=== PATIENT | female | born 1995 | race Caucasian/White ===

== ENCOUNTER 2016-12-15 22:52 | Emergency (ER) | payer OTHER ==
--- NOTE | 2016-12-15 23:26 | ED CLINICAL REPORT ---
Clinical Report - Physicians/Mid Levels [facility] [address] [place] [address] 12/15/2016 22:54 Patient: TERESITA TEJEDA Time Seen: 23:04 Dec 15 2016. Arrived- By private vehicle. Historian- patient. CPT: ER phys charges level 3 plus (#[id number]). Up to 2.5 cm simple scalp, neck (#[id number]). HISTORY OF PRESENT ILLNESS Chief Complaint: Injury to the left hand. The injury happened just prior to arrival. The patient sustained a laceration from a knife. Occurred at home. Patient is experiencing moderate pain. No other injury. REVIEW OF SYSTEMS The patient sustained a laceration. No swelling, tingling, numbness, weakness or foreign body. All systems otherwise negative, except as recorded above. PAST HISTORY See nurses notes. The patient's dominant hand is the right. Tetanus immunization status is up-to-date. Medications: Allergy Medication Oral. Allergies: No Known Drug Allergy. SOCIAL HISTORY Heavy tobacco smoker (cigarette)- less than 1 pack per day. Occasional alcohol use. No drug use. ADDITIONAL NOTES The nursing notes have been reviewed. PHYSICAL EXAM Vital Signs: 12/15/2016 23:04 BP: 152/86. HR: 113. RR: 16. O2 saturation: 99%. Temp: 98.4 F. Pain level now: 5/10. Appearance: Alert. No acute distress. Skin: Skin warm and dry. Extremities: Dorsal left hand: mild tenderness and subcutaneous 2.0 cm laceration of the proximal aspect of the dorsal hand. SEE LACERATION PROCEDURE NOTE. Neurovascular intact distally. No abrasion or deformity. No limitation of extension. No wrist injury. Neuro, Vascular and Tendons: Vascular status intact. Capillary refill not prolonged. Sensation intact. Motor intact. Tendon function intact. No functional tendon deficit or tendon injury seen. Neuro: Oriented X 3. No motor deficit. No sensory deficit. PROGRESS AND PROCEDURES Laceration Repair: Location: left hand (dorsal MCP.). Length: 2.0cm. Complexity: simple (local anesthesia used and sutured). Wound depth/shape- subcutaneous and linear. Wound is clean. Distal neuro/vascular/tendon status normal. Tendon examined. No tendon deficit. Local anesthesia provided using 2% lidocaine with epi. Prepped with Hibiclens. Wound explored, cleansed, irrigated and examined to the base in bloodless field extensively with normal saline. Closure of skin: interrupted 4-0 (4 sutures). Post-procedure: she is stable and there are no complications. Bleeding is controlled and neuro-vascular status is intact distal to the wound. Dressing applied. Tetanus immunization up-to-date. Estimated blood loss: 1 mL. Patient/family counseled. Disposition: Discharged. Condition: stable and improved. CLINICAL IMPRESSION Single deep laceration to the left hand.No foreign body present. INSTRUCTIONS Protect wound and keep wound area clean. Change dressing twice daily. Keep wounds dry. You may wash wounds briefly, then dry. Apply neosporin twice daily. Sutures/jh should be removed in eight days. Limit use of your left hand until better. Return to work tomorrow, in one day (avoid heavy gripping . Do not get wet.). Your Current Medications: CONTINUE TAKING THE FOLLOWING MEDICATIONS: Allergy Medication Oral. OTC Medications: Acetaminophen (available over the counter): take according to label instructions. Follow-up: Follow up with your doctor in eight days as scheduled for suture removal. Understanding of the discharge instructions verbalized by patient. Discharge instructions reviewed with and understanding was verbalized by spouse and neighbor. (Electronically signed by Familia Kolb MD 12/17/2016 12:14)
--- NOTE | 2016-12-15 23:26 | ED NURSING NOTES ---
Clinical Report - Nurses [facility] [address] [place] [place] [address] 12/15/2016 22:54 [id number] TRI[facility] Triage time 23:00 Dec 15 2016. Acuity: LEVEL 3. Chief Complaint: INJURY TO LEFT HAND. Alert. SAMUEL COMA SCORE: [place] Coma Scale: 15- eyes open spontaneously (4); best verbal response- oriented x 4 (5); best motor response- obeys commands (6). Samuel Coma Scale: 15- eyes open spontaneously (4); best verbal response- oriented x 4 (5); best motor response- obeys commands (6). --23:20 Osei Gray R.N. 23:04 12/15/16. BP: 152/86. HR: 113. RR: 16. O2 saturation: 99%. Temp: 98.4 F (oral). Pain level now: 11/06. --23:20 Osei Gray R.N. Weight: 90.7 kg stated. Height/Length: 63 inches Per Patient. BMI: 35.4. --23:12 Osei Gray R.N. Medications Allergy Medication Oral. --23:08 Osei Gray R.N. Medication/allergy information source: the patient. --23:20 Osei Gray R.N. Allergies No Known Drug Allergy. --23:08 Osei Gray R.N. History Arrived by private vehicle. Historian: patient. Accompanied by family. Primary physician (none). ( (L) Hand Laceration. Cut her hand on a knife while doing dishes.). This occurred (about 20 minutes ago). Occurred at home. She sustained a laceration. Mechanism of injury: (knife cut). Treatment SUPERVISORY GEOGRAPHER: None. PAST MEDICAL HX: Tetanus status: unknown. Immunizations: status is unknown. SOCIAL HX: Heavy tobacco smoker- less than 1 pack per day. Alcohol use; consumes three glasses of wine. No drug use. No infectious disease exposure. ABUSE ASSESSMENT: No report of abuse. FALL RISK ASSESSMENT: Fall risk assessment completed. No fall risk identified. NUTRITIONAL RISK ASSESSMENT: The nutritional risk assessment revealed no deficiencies. FUNCTIONAL ASSESSMENT: Functional assessment: no impairments noted. LEARNING NEEDS ASSESSMENT: The learning needs assessment revealed no barriers. SKIN INTEGRITY ASSESSMENT: Skin integrity risk assessment completed. No skin integrity risk identified. --23:20 Osei Gray R.N. ADDITIONAL SURGERIES: . --23:19 Osei Gray R.N. Interventions ID band on patient. To treatment room. --23:20 Osei Gray R.N. PHYSICAL ASSESSMENT Ambulatory to room. GENERAL / NEURO / PSYCH: Oriented X 4. Appears in pain. EXTREMITIES: Capillary refill is less than 2 seconds in the extremities. Extremity pulses are within normal limits. Neuro-vascular status intact to the extremity. Left hand: laceration. SKIN: Skin intact. Skin is warm and dry. Laceration; (Left 5th finger). --23:14 Osei Gray R.N. NURSING PROGRESS NOTES Reassurance given. Patient identifiers checked. Call light placed in reach. Side rails up. Patient ready for evaluation- chart flagged and ED physician notified. --23:15 Osei Gray R.N. 23:22 17. Bleeding controlled. Wound cleansed. WOUND REPAIR: Wound repair performed by ED physician. Assisted by one nurse. The wound is located on the left little finger. The wound is 2 cm. The wound is linear. Preparation: suture tray set-up with 2% lidocaine with epi. Wound cleansed per physician. Procedure: wound repaired with sutures. Post-procedure: dressing applied. Estimated blood loss: 1 mL. Total time of assist / procedure: 15 minutes. --23:22 Osei Gray R.N. Applied sterile bulky dressing, following the application of antibiotic ointment (bacitracin). Secured with kerlix. --05:09 Osei Gray R.N. DISPOSITION / DISCHARGE 23:30. Condition at departure: improved. No learning barriers present. Discharge instructions provided and reviewed with the patient. Reviewed wound care instructions (sutures out in 7-10 days). Reviewed referral to family practice for followup. Patient verbalized understanding. Written instructions provided in Beninese. The patient was discharged by the physician. She was discharged home and accompanied by family and logistics administrator. She left the Emergency Department ambulatory and via private vehicle. Citrus Fruit Colorer driving. --05:08 Osei Gray R.N. Departure time: 2330. --05:08 Osei Gray R.N. Locked/Released at 12/16/2016 5:09 by Osei Gray R.N.
--- NOTE | 2016-12-15 23:26 | ED CLINICAL REPORT ---
Clinical Report - Physicians/Mid Levels [facility] [address] [place] [address] 12/15/2016 22:54 Patient: TERESITA TEJEDA Time Seen: 23:04 Dec 15 2016. Arrived- By private vehicle. Historian- patient. CPT: ER phys charges level 3 plus (#[id number]). Up to 2.5 cm simple scalp, neck (#[id number]). HISTORY OF PRESENT ILLNESS Chief Complaint: Injury to the left hand. The injury happened just prior to arrival. The patient sustained a laceration from a knife. Occurred at home. Patient is experiencing moderate pain. No other injury. REVIEW OF SYSTEMS The patient sustained a laceration. No swelling, tingling, numbness, weakness or foreign body. All systems otherwise negative, except as recorded above. PAST HISTORY See nurses notes. The patient's dominant hand is the right. Tetanus immunization status is up-to-date. Medications: Allergy Medication Oral. Allergies: No Known Drug Allergy. SOCIAL HISTORY Heavy tobacco smoker (cigarette)- less than 1 pack per day. Occasional alcohol use. No drug use. ADDITIONAL NOTES The nursing notes have been reviewed. PHYSICAL EXAM Vital Signs: 12/15/2016 23:04 BP: 152/86. HR: 113. RR: 16. O2 saturation: 99%. Temp: 98.4 F. Pain level now: 5/10. Appearance: Alert. No acute distress. Skin: Skin warm and dry. Extremities: Dorsal left hand: mild tenderness and subcutaneous 2.0 cm laceration of the proximal aspect of the dorsal hand. SEE LACERATION PROCEDURE NOTE. Neurovascular intact distally. No abrasion or deformity. No limitation of extension. No wrist injury. Neuro, Vascular and Tendons: Vascular status intact. Capillary refill not prolonged. Sensation intact. Motor intact. Tendon function intact. No functional tendon deficit or tendon injury seen. Neuro: Oriented X 3. No motor deficit. No sensory deficit. PROGRESS AND PROCEDURES Laceration Repair: Location: left hand (dorsal MCP.). Length: 2.0cm. Complexity: simple (local anesthesia used and sutured). Wound depth/shape- subcutaneous and linear. Wound is clean. Distal neuro/vascular/tendon status normal. Tendon examined. No tendon deficit. Local anesthesia provided using 2% lidocaine with epi. Prepped with Hibiclens. Wound explored, cleansed, irrigated and examined to the base in bloodless field extensively with normal saline. Closure of skin: interrupted 4-0 (4 sutures). Post-procedure: she is stable and there are no complications. Bleeding is controlled and neuro-vascular status is intact distal to the wound. Dressing applied. Tetanus immunization up-to-date. Estimated blood loss: 1 mL. Patient/family counseled. Disposition: Discharged. Condition: stable and improved. CLINICAL IMPRESSION Single deep laceration to the left hand.No foreign body present. INSTRUCTIONS Protect wound and keep wound area clean. Change dressing twice daily. Keep wounds dry. You may wash wounds briefly, then dry. Apply neosporin twice daily. Sutures/jh should be removed in eight days. Limit use of your left hand until better. Return to work tomorrow, in one day (avoid heavy gripping . Do not get wet.). Your Current Medications: CONTINUE TAKING THE FOLLOWING MEDICATIONS: Allergy Medication Oral. OTC Medications: Acetaminophen (available over the counter): take according to label instructions. Follow-up: Follow up with your doctor in eight days as scheduled for suture removal. Understanding of the discharge instructions verbalized by patient. Discharge instructions reviewed with and understanding was verbalized by spouse and neighbor. (Electronically signed by Familia Kolb MD 12/17/2016 12:14)
--- NOTE | 2016-12-15 23:26 | ED NURSING NOTES ---
Clinical Report - Nurses [facility] [address] [place] [address] 12/15/2016 22:54 [id number] Triage time 23:00 Dec 15 2016. Acuity: LEVEL 3. Chief Complaint: INJURY TO LEFT HAND. Alert. SAMUEL COMA SCORE: [place] Coma Scale: 15- eyes open spontaneously (4); best verbal response- oriented x 4 (5); best motor response- obeys commands (6). Samuel Coma Scale: 15- eyes open spontaneously (4); best verbal response- oriented x 4 (5); best motor response- obeys commands (6). --23:20 Osei Gray R.N. 23:04 12/15/16. BP: 152/86. HR: 113. RR: 16. O2 saturation: 99%. Temp: 98.4 F (oral). Pain level now: 11/06. --23:20 Osei Gray R.N. Weight: 90.7 kg stated. Height/Length: 63 inches Per Patient. BMI: 35.4. --23:12 Osei Gray R.N. Medications Allergy Medication Oral. --23:08 Osei Gray R.N. Medication/allergy information source: the patient. --23:20 Osei Gray R.N. Allergies No Known Drug Allergy. --23:08 Osei Gray R.N. History Arrived by private vehicle. Historian: patient. Accompanied by family. Primary physician (none). ( (L) Hand Laceration. Cut her hand on a knife while doing dishes.). This occurred (about 20 minutes ago). Occurred at home. She sustained a laceration. Mechanism of injury: (knife cut). Treatment ADVERTISING SALES EXECUTIVE: None. PAST MEDICAL HX: Tetanus status: unknown. Immunizations: status is unknown. SOCIAL HX: Heavy tobacco smoker- less than 1 pack per day. Alcohol use; consumes three glasses of wine. No drug use. No infectious disease exposure. ABUSE ASSESSMENT: No report of abuse. FALL RISK ASSESSMENT: Fall risk assessment completed. No fall risk identified. NUTRITIONAL RISK ASSESSMENT: The nutritional risk assessment revealed no deficiencies. FUNCTIONAL ASSESSMENT: Functional assessment: no impairments noted. LEARNING NEEDS ASSESSMENT: The learning needs assessment revealed no barriers. SKIN INTEGRITY ASSESSMENT: Skin integrity risk assessment completed. No skin integrity risk identified. --23:20 Osei Gray R.N. ADDITIONAL SURGERIES: . --23:19 Osei Gray R.N. Interventions ID band on patient. To treatment room. --23:20 Osei Gray R.N. PHYSICAL ASSESSMENT Ambulatory to room. GENERAL / NEURO / PSYCH: Oriented X 4. Appears in pain. EXTREMITIES: Capillary refill is less than 2 seconds in the extremities. Extremity pulses are within normal limits. Neuro-vascular status intact to the extremity. Left hand: laceration. SKIN: Skin intact. Skin is warm and dry. Laceration; (Left 5th finger). --23:14 Osei Gray R.N. NURSING PROGRESS NOTES Reassurance given. Patient identifiers checked. Call light placed in reach. Side rails up. Patient ready for evaluation- chart flagged and ED physician notified. --23:15 Osei Gray R.N. 23:22 17. Bleeding controlled. Wound cleansed. WOUND REPAIR: Wound repair performed by ED physician. Assisted by one nurse. The wound is located on the left little finger. The wound is 2 cm. The wound is linear. Preparation: suture tray set-up with 2% lidocaine with epi. Wound cleansed per physician. Procedure: wound repaired with sutures. Post-procedure: dressing applied. Estimated blood loss: 1 mL. Total time of assist / procedure: 15 minutes. --23:22 Osei Gray R.N. Applied sterile bulky dressing, following the application of antibiotic ointment (bacitracin). Secured with kerlix. --05:09 Osei Gray R.N. DISPOSITION / DISCHARGE 23:30. Condition at departure: improved. No learning barriers present. Discharge instructions provided and reviewed with the patient. Reviewed wound care instructions (sutures out in 7-10 days). Reviewed referral to family practice for followup. Patient verbalized understanding. Written instructions provided in S[place]inese. The patient was discharged by the physician. She was discharged home and accompanied by family and landfill gas technician. She left the Emergency Department ambulatory and via private vehicle. Carbon Accountant driving. --05:08 Osei Gray R.N. Departure time: 2330. --05:08 Osei Gray R.N. Locked/Released at 12/16/2016 5:09 by Osei Gray R.N.
--- NOTE | 2016-12-17 12:14 | ED MED RECONCILIATION SUMMARY ---
Patient: BEBETO TEJEDAILEY Munir Medication Reconciliation Report [facility] VisitID: [id number] [place] [address] 21y, F Registration Date/Time: 12/15/2016 Weight: 90.7 kg Height/Length: 63 in. BMI: 35.4 ALLERGIES: No Known Drug Allergy The patient's Home Medications are listed below: CONTINUE TAKING THE FOLLOWING MEDICATIONS: Allergy Medication Oral The source(s) of the original Home Medication information: patient The following Medications were given to the patient in the Emergency Department: None. The following Medications were prescribed to the patient: Acetaminophen (available over the counter): take according to label instructions. -- Familia Kolb MD
--- NOTE | 2016-12-17 12:14 | ED MAR SUMMARY ---
..... Medication Administration Record [address] [place], [place] [id number] Patient: TERESITA TEJEDA Visit ID: [id number] 21y, F Weight: 90.7 kg Height/Length: 63 in BMI: 35.4 ALLERGIES: No Known Drug Allergy
--- NOTE | 2016-12-17 12:14 | ED MAR SUMMARY ---
..... Medication Administration Record [facility] [address] [place], [place] [id number] Patient: TERESITA TEJEDA Visit ID: [id number] 21y, F Weight: 90.7 kg Height/Length: 63 in BMI: 35.4 ALLERGIES: No Known Drug Allergy
--- NOTE | 2016-12-17 12:14 | ED DISCHARGE INSTRUCTIONS ---
Patient: TERESITA TEJEDA General Instructions [facility] VisitID: [id number] [place] [address] 21y, F Registration Date/Time: 12/15/2016 Single deep laceration to the left hand.No foreign body present. INSTRUCTIONS Protect wound and keep wound area clean. Change dressing twice daily. Keep wounds dry. You may wash wounds briefly, then dry. Apply neosporin twice daily. Sutures/francia should be removed in eight days. Limit use of your left hand until better. Return to work tomorrow, in one day (avoid heavy gripping . Do not get wet.). Your Current Medications: CONTINUE TAKING THE FOLLOWING MEDICATIONS: Allergy Medication Oral. OTC Medications: Acetaminophen (available over the counter): take according to label instructions. Follow-up: Follow up with your doctor in eight days as scheduled for suture removal. Understanding of the discharge instructions verbalized by patient. Discharge instructions reviewed with and understanding was verbalized by spouse and neighbor. ADDITIONAL INFORMATION Laceration, Extremity (Sutures, [place], Or Tape) A laceration is a cut through the skin. This will usually require stitches (sutures) or francia if it is deep. Minor cuts may be treated with surgical tape closures. Home care The following guidelines will help you care for your laceration at home: Keep the wound clean and dry. If a bandage was applied and it becomes wet or dirty, replace it. Otherwise, leave it in place for the first 24 hours, then change it once a day or as directed. If stitches or francia were used, clean the wound daily: After removing the bandage, wash the area with soap and water. Use a wet cotton swab to loosen and remove any blood or crust that forms. After cleaning, keep the wound clean and dry. Talk with your doctor before applying any antibiotic ointment to the wound. Reapply the bandage. You may remove the bandage to shower as usual after the first 24 hours, but do not soak the area in water (no swimming) until the stitches or frnacia are removed. If surgical tape closures were used, keep the area clean and dry. If it becomes wet, blot it dry with a towel. The doctor may prescribe an antibiotic cream or ointment to prevent infection. Do not stop taking this medication until you have finished the prescribed course or the doctor tells you to stop. The doctor may also prescribe medications for pain. Follow the doctors instructions for taking these medications. If you have chronic liver or kidney disease or ever had a stomach ulcer or GI bleeding, talk with your doctor before using these medicines. Follow-up care Follow up with your health care provider. Most skin wounds heal within ten days. However, an infection may sometimes occur despite proper treatment. Therefore, check the wound daily for the signs of infection listed below. Stitches and francia should be removed within 714 days. If surgical tape closures were used, you may remove them after 10 days, if they have not fallen off by then. Notify your doctor if you notice persistent numbness or weakness in the injured extremity. (Note:A radiologist will review any X-rays that were taken. We will notify you of any new findings that may affect your care.) When to seek medical care Get prompt medical attention if any of these occur: Increasing pain in the wound Redness, swelling, or pus coming from the wound Fever of 100.4F (38C) or higher, or as directed by your health care provider If stitches or francia come apart or fall out before your next appointment If the surgical tape closures fall off within seven days, or the wound edges re-open Bleeding not controlled by direct pressure Laceration, Extremity (Sutures, [place], Or Tape) A laceration is a cut through the skin. This will usually require stitches (sutures) or francia if it is deep. Minor cuts may be treated with surgical tape closures. Home care The following guidelines will help you care for your laceration at home: Keep the wound clean and dry. If a bandage was applied and it becomes wet or dirty, replace it. Otherwise, leave it in place for the first 24 hours, then change it once a day or as directed. If stitches or francia were used, clean the wound daily: After removing the bandage, wash the area with soap and water. Use a wet cotton swab to loosen and remove any blood or crust that forms. After cleaning, keep the wound clean and dry. Talk with your doctor before applying any antibiotic ointment to the wound. Reapply the bandage. You may remove the bandage to shower as usual after the first 24 hours, but do not soak the area in water (no swimming) until the stitches or francia are removed. If surgical tape closures were used, keep the area clean and dry. If it becomes wet, blot it dry with a towel. The doctor may prescribe an antibiotic cream or ointment to prevent infection. Do not stop taking this medication until you have finished the prescribed course or the doctor tells you to stop. The doctor may also prescribe medications for pain. Follow the doctors instructions for taking these medications. If you have chronic liver or kidney disease or ever had a stomach ulcer or GI bleeding, talk with your doctor before using these medicines. Follow-up care Follow up with your health care provider. Most skin wounds heal within ten days. However, an infection may sometimes occur despite proper treatment. Therefore, check the wound daily for the signs of infection listed below. Stitches and francia should be removed within 714 days. If surgical tape closures were used, you may remove them after 10 days, if they have not fallen off by then. Notify your doctor if you notice persistent numbness or weakness in the injured extremity. (Note:A radiologist will review any X-rays that were taken. We will notify you of any new findings that may affect your care.) When to seek medical care Get prompt medical attention if any of these occur: Increasing pain in the wound Redness, swelling, or pus coming from the wound Fever of 100.4F (38C) or higher, or as directed by your health care provider If stitches or francia come apart or fall out before your next appointment If the surgical tape closures fall off within seven days, or the wound edges re-open Bleeding not controlled by direct pressure You have been given the following additional information: Laceration, Extrem (Suture, Staple, Or Tape) Laceration, Extrem (Suture, Staple, Or Tape) Limit use of your left hand until better. Return to work tomorrow, in one day (avoid heavy gripping . Do not get wet.). (Electronically signed by Familia Kolb MD 12/17/2016 12:14)
--- NOTE | 2016-12-17 12:14 | ED MED RECONCILIATION SUMMARY ---
Patient: BEBETO TEJEDAILEY Munir Medication Reconciliation Report [facility] VisitID: [id number] [place] [address] 21y, F Registration Date/Time: 12/15/2016 Weight: 90.7 kg Height/Length: 63 in. BMI: 35.4 ALLERGIES: No Known Drug Allergy The patient's Home Medications are listed below: CONTINUE TAKING THE FOLLOWING MEDICATIONS: Allergy Medication Oral The source(s) of the original Home Medication information: patient The following Medications were given to the patient in the Emergency Department: None. The following Medications were prescribed to the patient: Acetaminophen (available over the counter): take according to label instructions. -- Familia Kolb MD
== END 2016-12-15 23:30 | disposition home or self-care (01) ==
LOC: ED SRH 22:52
DX: S61.412A Laceration without foreign body of left hand, initial encounter (principal); W26.0XXA Contact with knife, initial encounter; Y93.89 Activity, other specified; Y92.019 Unspecified place in single-family (private) house as the place of occurrence of the external cause; Y99.8 Other external cause status; F17.210 Nicotine dependence, cigarettes, uncomplicated